=== PATIENT | male | born 1985 | race African-American/Black ===

== ENCOUNTER 2018-02-28 17:27 | Emergency (ER) | payer BC ==
[~2018-02-28] VITALS: Ht 170.2 cm; Wt 95.8 kg
[~2018-02-28 17:27] MED LIST: AMOXICILLIN875 MG PO; FLEXERIL10 MG PO; LORTAB 5-325 M1 EACH PO; MAALOX ADVANCE355 ML PO; NAPROSYN500 MG PO; NOHOMEMEDS; PRILOSEC20 MG PO; VICODIN 5-3001 EACH PO
[2018-02-28] MEDS ORDERED: VALIUM5 MG PO (21:00)
[2018-02-28] MEDS ORDERED: NAPROXEN500 MG PO (21:00)
[2018-02-28 21:09] VITALS: BP 147/103
== END 2018-02-28 21:10 | disposition home or self-care (01) ==
LOC: EME 17:27
DX: M54.2 Cervicalgia (principal); M62.838 Other muscle spasm
CPT/HCPCS: 72040; 99281; 99283; J1100